=== PATIENT | female | born 1950 | race Caucasian/White ===

== ENCOUNTER 2022-10-24 07:52 | Emergency (ER) | payer MEDICARE, OTHER ==
[~2022-10-24] VITALS: Ht 157.5 cm; Wt 129.3 kg
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
[2022-10-24 08:28] LABS: BASOPHILS # (AUTO) 0.1 10^3/uL (0.0-0.1); BASOPHILS % (AUTO) 1 % (0-10); EOSINOPHILS # (AUTO) 0.4 10^3/uL (0.0-0.3); EOSINOPHILS % (AUTO) 3 % (0-10); HEMATOCRIT 38 % (35-52); HEMOGLOBIN 12.5 g/dL (11.5-16.0); LYMPHOCYTES # (AUTO) 1.7 10^3/uL (1.0-4.0); LYMPHOCYTES % (AUTO) 12 % (12-44); MEAN CORPUSCULAR HEMOGLOBIN 29 pg (25-34); MEAN CORPUSCULAR HGB CONC 33 g/dL (32-36); MEAN CORPUSCULAR VOLUME 87 fL (80-99); MEAN PLATELET VOLUME 10.1 fL (9.0-12.2); MONOCYTES # (AUTO) 0.9 10^3/uL (0.0-1.0); MONOCYTES % (AUTO) 6 % (0-12); NEUTROPHILS # (AUTO) 10.4 10^3/uL (1.8-7.8); NEUTROPHILS % (AUTO) 76 % (42-75); PLATELET COUNT 247 10^3/uL (130-400); WHITE BLOOD COUNT 13.7 10^3/uL (4.3-11.0)
[2022-10-24] MEDS ORDERED: ASPIRIN 81 MG CHEW (CHILDREN'S ASA) PO ONE (08:30)
[2022-10-24 08:40] LABS: ALBUMIN 3.7 GM/DL (3.2-4.5); POTASSIUM 4.3 MMOL/L (3.6-5.0)
[2022-10-24 08:41] LABS: CALCIUM 9.7 MG/DL (8.5-10.1)
[2022-10-24 08:42] LABS: PROTHROMBIN TIME PATIENT 13.2 SEC (12.2-14.7)
[2022-10-24 08:43] LABS: TOTAL PROTEIN 6.7 GM/DL (6.4-8.2)
[2022-10-24 08:44] LABS: BILIRUBIN,TOTAL 0.4 MG/DL (0.1-1.0)
[2022-10-24 08:46] LABS: CREATININE SERUM 1.01 MG/DL (0.60-1.30)
[2022-10-24 08:49] LABS: MAGNESIUM 1.6 MG/DL (1.6-2.4)
--- NOTE | 2022-10-24 08:53 | Diagnostic Imaging Report ---
EXAMINATION: Chest, 1 view. HISTORY: Chest pain. COMPARISON: None available. FINDINGS: Heart size is mildly enlarged. Mild interstitial opacities within the lower lungs. No pleural effusion or pneumothorax. The osseous structures are intact. IMPRESSION: Cardiomegaly with mild interstitial opacities in the lung bases which can be seen with atelectasis, pulmonary edema, or atypical infection. Dictated by: Dictated on workstation # [id number]
[2022-10-24] MEDS ORDERED: NS 100 ML (IVPB) BAG IV ONE (09:15)
[2022-10-24] MEDS ORDERED: IOHEXOL 350 MG/ML 100 ML (OMNIPAQUE 350) VIAL IV ONE (09:15)
[2022-10-24] MEDS ORDERED: HOLD METFORMIN - RECEIVED CONTRAST 20 ML VIAL IV SCH (09:15)
--- NOTE | 2022-10-24 09:35 | Diagnostic Imaging Report ---
INDICATION: Chest pain, dyspnea and elevated d-dimer levels. There is also swelling of left lower extremity. CTA of the thorax performed after bolus intravenous administration of iodinated contrast. 3-D reformatted images are produced. Automatic exposure controls were utilized to keep dose as low as reasonably achievable. FINDINGS: There is good opacification of pulmonary arteries without intraluminal filling defect identified. Thoracic aorta is of normal caliber. There is mild dependent atelectasis in both lungs. There is no evidence of consolidation. Mild pericardial fluid is seen without significant pleural fluid. There is no evidence of pathologically enlarged adenopathy. IMPRESSION: No CTA evidence of pulmonary embolism. There is mild pericardial fluid present without other evidence of acute abnormality in the chest. Dictated by: Dictated on workstation # [id number]
[2022-10-24 10:45] VITALS: BP 102/59
== END 2022-10-24 10:45 | disposition home or self-care (01) ==
LOC: ER 07:55
DX: I31.39 Other pericardial effusion (noninflammatory) (principal); R60.0 Localized edema; R79.1 Abnormal coagulation profile; Z20.822 Contact with and (suspected) exposure to COVID-19
CPT/HCPCS: 36415; 71045; 71275; 80053; 83690; 83735; 83880; 84484; 85025; 85379; 85610; 85730; 87636; 93005; 93041

== ENCOUNTER 2023-04-01 17:17 | Emergency (ER) | payer MEDICARE ==
[~2023-04-01] VITALS: Ht 157 cm; Wt 136.0 kg
[2023-04-01 17:36] LABS: BASOPHILS # (AUTO) 0.1 10^3/uL (0.0-0.1); BASOPHILS % (AUTO) 1 % (0-10); EOSINOPHILS # (AUTO) 0.3 10^3/uL (0.0-0.3); EOSINOPHILS % (AUTO) 3 % (0-10); HEMATOCRIT 37 % (35-52); HEMOGLOBIN 11.8 g/dL (11.5-16.0); LYMPHOCYTES # (AUTO) 1.8 10^3/uL (1.0-4.0); LYMPHOCYTES % (AUTO) 17 % (12-44); MEAN CORPUSCULAR HEMOGLOBIN 29 pg (25-34); MEAN CORPUSCULAR HGB CONC 32 g/dL (32-36); MEAN CORPUSCULAR VOLUME 90 fL (80-99); MEAN PLATELET VOLUME 10.2 fL (9.0-12.2); MONOCYTES # (AUTO) 0.9 10^3/uL (0.0-1.0); MONOCYTES % (AUTO) 8 % (0-12); NEUTROPHILS # (AUTO) 7.8 10^3/uL (1.8-7.8); NEUTROPHILS % (AUTO) 71 % (42-75); PLATELET COUNT 265 10^3/uL (130-400)
[2023-04-01] MEDS ORDERED: ASPIRIN 81 MG CHEW (CHILDREN'S ASA) PO ONE (17:45)
[2023-04-01 17:50] LABS: ALBUMIN 3.9 GM/DL (3.2-4.5); CHLORIDE 103 MMOL/L (98-107); POTASSIUM 4.2 MMOL/L (3.6-5.0); SODIUM 140 MMOL/L (135-145)
[2023-04-01 17:51] LABS: CALCIUM 9.7 MG/DL (8.5-10.1)
--- NOTE | 2023-04-01 17:51 | ED Chest Pain ---
General Chief Complaint: Chest Pain Stated Complaint: TIGHTNESS IN CHEST Nursing Triage Note: cp, sob, arms are heavy has been feeling this way since yesterday around 0930. 5\\10 on pain scale. Source: patient Exam Limitations: no limitations History of Present Illness Date Seen by Provider: Apr 01, 2023 Time Seen by Provider: 17:27 Initial Comments 73-year-old female presents to the ER with complaints of midsternal chest tightness starting yesterday morning around 9:30 AM. She states that she was having intermittent pain prior to this, but states that it has been constant since yesterday morning. She states the pain has gotten worse today. She reports that the pain is worse with exertion. She describes the pain as a tightness, denies stabbing pain or pressure pain. States it does not radiate. Denies any sweating with the pain. Denies any nausea or vomiting. She does report shortness of breath, states her shortness of breath is also worse with exertion. She was seen by Dr. Grayson, her primary, approximately 3 weeks ago. She was prescribed Bumex at that time due to some lower extremity edema. She states that the swelling has improved, but it is still present. Past medical history includes hypertension, diabetes, GERD, PVCs, hyperlipidemia, and restless leg. She denies fevers, cough, abdominal pain, nausea, vomiting. Allergies and Home Medications Allergies Coded Allergies: No Known Drug Allergies (Unverified , 04/01/23) Patient Home Medication List Home Medication List Reviewed: Yes Review of Systems Review of Systems Constitutional: see HPI Past Efmvowp-Wbvioa-Fdwdjw Hx Patient Social History Tobacco Use?: No Use of E-Cig and/or Vaping dev: No Substance use?: No Alcohol Use?: No Pt feels they are or have been: No Immunizations Up To Date First/Initial COVID19 Vaccinat: 2 shots Past Medical History Surgery/Hospitalization HX: htn, asthma, restless leg, pvc's, NIDDM Gurd appy, gb, bilateral knee replacement, total hyster Surgeries: Yes Gallbladder, Hysterectomy, Joint Replacement, Tonsillectomy Physical Exam Vital Signs Vital Signs - First Documented 04/01/23 17:22 Temp 36.3 Pulse 71 Resp 20 B/P (MAP) 145/81 (102) Pulse Ox 95 O2 Delivery Room Air Capillary Refill : Height, Weight, BMI Height: '" Weight: lbs. oz. kg; 55.00 BMI Method: General Appearance: No Apparent Distress, WD/WN Neck: Normal Inspection, Supple Respiratory: Lungs Clear, Normal Breath Sounds, No Accessory Muscle Use, No Respiratory Distress, Other (Midsternal chest tender to palpation) Cardiovascular: Regular Rate, Rhythm Extremity: Normal Range of Motion, Pedal Edema (+1 lower extremity edema) Neurologic/Psychiatric: Alert, Normal Mood/Affect Skin: Normal Color, Warm/Dry Progress/Results/Core Measures Results/Orders Lab Results Laboratory Tests Test 04/01/23 17:29 04/01/23 18:02 Range/Units White Blood Count 11.0 4.3-11.0 10^3/uL Red Blood Count 4.10 3.80-5.11 10^6/uL Hemoglobin 11.8 11.5-16.0 g/dL Hematocrit 37 35-52 % Mean Corpuscular Volume 90 80-99 fL Mean Corpuscular Hemoglobin 29 25-34 pg Mean Corpuscular Hemoglobin Concent 32 32-36 g/dL Red Cell Distribution Width 15.5 H 10.0-14.5 % Platelet Count 265 130-400 10^3/uL Mean Platelet Volume 10.2 9.0-12.2 fL Immature Granulocyte % (Auto) 1 % Neutrophils (%) (Auto) 71 42-75 % Lymphocytes (%) (Auto) 17 12-44 % Monocytes (%) (Auto) 8 0-12 % Eosinophils (%) (Auto) 3 0-10 % Basophils (%) (Auto) 1 0-10 % Neutrophils # (Auto) 7.8 1.8-7.8 10^3/uL Lymphocytes # (Auto) 1.8 1.0-4.0 10^3/uL Monocytes # (Auto) 0.9 0.0-1.0 10^3/uL Eosinophils # (Auto) 0.3 0.0-0.3 10^3/uL Basophils # (Auto) 0.1 0.0-0.1 10^3/uL Immature Granulocyte # (Auto) 0.1 0.0-0.1 10^3/uL Prothrombin Time 12.6 12.2-14.7 SEC INR Comment 0.9 0.8-1.4 Activated Partial Thromboplast Time 31 24-35 SEC Sodium Level 140 135-145 MMOL/L Potassium Level 4.2 3.6-5.0 MMOL/L Chloride Level 103 98-107 MMOL/L Carbon Dioxide Level 25 21-32 MMOL/L Anion Gap 12 5-14 MMOL/L Blood Urea Nitrogen 27 H 7-18 MG/DL Creatinine 0.95 0.60-1.30 MG/DL Estimat Glomerular Filtration Rate 64 BUN/Creatinine Ratio 28 Glucose Level 139 H 70-105 MG/DL Calcium Level 9.7 8.5-10.1 MG/DL Corrected Calcium 9.8 8.5-10.1 MG/DL Magnesium Level 1.5 L 1.6-2.4 MG/DL Total Bilirubin 0.3 0.1-1.0 MG/DL Aspartate Amino Transf (AST/SGOT) 13 5-34 U/L Alanine Aminotransferase (ALT/SGPT) 19 0-55 U/L Alkaline Phosphatase 88 40-136 U/L Troponin I < 0.028 <0.028 NG/ML Total Protein 6.7 6.4-8.2 GM/DL Albumin 3.9 3.2-4.5 GM/DL B-Type Natriuretic Peptide 27.1 <100.0 PG/ML My Orders Orders - KAYLIE PARSON HEAD REFRIGERATING ENGINEER Cbc With Automated Diff (04/01/23 17:27) Magnesium (04/01/23 17:27) Chest 1 View, Ap/Pa Only (04/01/23 17:27) Comprehensive Metabolic Panel (04/01/23 17:27) Protime With Inr (04/01/23 17:27) Partial Thromboplastin Time (04/01/23 17:27) Monitor-Rhythm Ecg Trace Only (04/01/23 17:27) Ed Iv/Invasive Line Start (04/01/23 17:27) Troponin I Sharon (04/01/23 17:27) Bnp [place] (04/01/23 17:42) Aspirin Chewable Tablet (Baby Aspirin Ch (04/01/23 17:45) Magnesium 1 Gm/100 Ml Ivpb (Magnesium Dillon (04/01/23 19:00) Medications Given in ED Current Medications Medications Dose Ordered Sig/Mariaelena Route Start Time Stop Time Status Last Admin Dose Admin Aspirin 324 mg ONCE ONCE PO 04/01/23 17:45 6/25/23 17:46 DC 04/01/23 17:53 324 MG Magnesium Sulfate/ Dextrose 100 ml @ 200 mls/hr ONCE ONCE IV 04/01/23 19:00 04/01/23 19:29 DC 04/01/23 19:04 200 MLS/HR Vital Signs/I&O 04/01/23 17:22 Temp 36.3 Pulse 71 Resp 20 B/P (MAP) 145/81 (102) Pulse Ox 95 O2 Delivery Room Air Blood Pressure Mean: 102 Progress Progress Note : Progress Note Patient seen and evaluated, resting comfortably in bed, no acute distress. Based on exam and symptoms, work-up initiated occluding CBC, CMP, troponin, magnesium, coags, BNP, chest x-ray. 1858 labs and x-ray reviewed. CBC grossly normal. CMP shows elevated BUN 27, normal creatinine, GFR 64, these are similar to previous. Magnesium is low at 1.5. Replacement magnesium ordered. Troponin negative. BNP normal. Coags normal. Chest x-ray shows cardiomegaly and mild central pulmonary venous congestion. Results discussed with patient. Patient instructed to follow-up with cardiology regarding enlarged heart and vascular congestion. Symptoms are likely related to heart failure. Patient states that her sees Dr. Shoemaker, and she will follow-up with Dr. Shoemaker. Will discharge after magnesium replacement. Discharge instructions and return precautions provided. Initial ECG Impression Date: Apr 01, 2023 Initial ECG Impression Time: 17:21 Initial ECG Rate: 73 Initial ECG Rhythm: Normal Sinus Initial ECG Intervals: KS (Prolonged at 230) Initial ECG Impression: Nonspecific Changes Initial ECG Comparisson: Unchanged Diagnostic Imaging Diagonstic Imaging: Xray Plain Films/CT/US/NM/MRI: chest Comments [facility] [place] [place] NAME: DEE RAM [facility] REC#: [id number] PT STATUS: REG ER : 1950 PHYSICIAN: KAYLIE PARSON APRN ADMIT DATE: 04/01/23/ER Signed Date of Exam:04/01/23 CHEST 1 VIEW, AP/PA ONLY INDICATION: Chest pain. COMPARISON: Prior examination from 10/24/2022. There is generalized cardiomegaly and mild central pulmonary venous congestion. The mediastinal configuration is unremarkable. There is no pleural effusion, pneumothorax or pneumonia. The visualized osseous structures are unremarkable. IMPRESSION: Cardiomegaly and mild central pulmonary venous congestion. Dictated by: Dictated on workstation # [id number] Dict: 04/01/23 1750 Trans: 04/01/23 1800 PJE [id number] Interpreted by: ESTRADA SPAIN MD Electronically signed by: ESTRADA SPAIN MD 04/01/23 1800 Departure Impression Primary Impression: Chest tightness Additional Impressions: Shortness of breath Cardiomegaly Hypomagnesemia Disposition: HOME, SELF-CARE Condition: Stable Departure-Patient Inst. Decision time for Depature: 19:37 Referrals: [facility] [facility] [place] Primary Care Physician Patient Instructions: Chest Pain, Adult ED Add. Discharge Instructions: Follow-up with cardiology, call them tomorrow to schedule a follow-up appointment. Follow-up with your primary care provider. Continue taking your medications as prescribed, especially your bumetanide. Return for severe chest pain, severe shortness of breath, or any other new, concerning, or worsening symptoms. All discharge instructions reviewed with patient and/or family. Voiced understa nding. KAYLIE PARSON HEAD REFRIGERATING ENGINEER Apr 01, 2023 17:51
[2023-04-01 17:52] LABS: GLUCOSE 139 MG/DL (70-105); INR 0.9 (0.8-1.4); PROTHROMBIN TIME PATIENT 12.6 SEC (12.2-14.7)
[2023-04-01 17:53] LABS: TOTAL PROTEIN 6.7 GM/DL (6.4-8.2)
[2023-04-01 17:54] LABS: BILIRUBIN,TOTAL 0.3 MG/DL (0.1-1.0); CARBON DIOXIDE 25 MMOL/L (21-32)
[2023-04-01 17:56] LABS: ALKALINE PHOSPHATASE 88 U/L (40-136); CREATININE SERUM 0.95 MG/DL (0.60-1.30); GFR ESTIMATED 64
[2023-04-01 17:57] LABS: BUN/CREATININE RATIO 28
[2023-04-01 17:59] LABS: ALANINE AMINOTRANSFERASE 19 U/L (0-55); MAGNESIUM 1.5 MG/DL (1.6-2.4)
[2023-04-01] MEDS ORDERED: MAGNESIUM 1 GM/100 ML IVPB 100 ML IV ONE ×2 (19:00)
[2023-04-01 19:50] VITALS: BP 146/64
== END 2023-04-01 19:40 | disposition home or self-care (01) ==
LOC: EDUNIT# 17:17 → ER 17:19
DX: I11.9 Hypertensive heart disease without heart failure (principal); E83.42 Hypomagnesemia; R79.89 Other specified abnormal findings of blood chemistry; Z28.311 Partially vaccinated for COVID-19
CPT/HCPCS: 36415; 71045; 80053; 83735; 83880; 84484; 85025; 85610; 85730; 93005; 93041

== ENCOUNTER 2023-08-21 11:19 | Emergency (ER) | payer MEDICARE ==
[~2023-08-21] VITALS: Ht 154.9 cm; Wt 136.0 kg
[2023-08-21 11:38] LABS: BASOPHILS % (AUTO) 0 % (0-10); EOSINOPHILS # (AUTO) 0.1 10^3/uL (0.0-0.3); EOSINOPHILS % (AUTO) 0 % (0-10); HEMATOCRIT 37 % (35-52); HEMOGLOBIN 11.8 g/dL (11.5-16.0); LYMPHOCYTES # (AUTO) 0.7 10^3/uL (1.0-4.0); LYMPHOCYTES % (AUTO) 6 % (12-44); MEAN CORPUSCULAR HEMOGLOBIN 28 pg (25-34); MEAN CORPUSCULAR HGB CONC 32 g/dL (32-36); MEAN CORPUSCULAR VOLUME 89 fL (80-99); MEAN PLATELET VOLUME 11.2 fL (9.0-12.2); MONOCYTES # (AUTO) 0.3 10^3/uL (0.0-1.0); MONOCYTES % (AUTO) 3 % (0-12); NEUTROPHILS # (AUTO) 10.1 10^3/uL (1.8-7.8); NEUTROPHILS % (AUTO) 90 % (42-75); PLATELET COUNT 242 10^3/uL (130-400); WHITE BLOOD COUNT 11.3 10^3/uL (4.3-11.0)
--- NOTE | 2023-08-21 11:41 | ED Chest Pain ---
General Chief Complaint: Cardiac/General Problems Stated Complaint: HEART PALPETATIONS/TIGHTNESS IN CHEST/SOB Nursing Triage Note: PT AMB TO [facility] 5 WITH CC OF CHEST TIGHTNESS AND PALPITATIONS X2 DAYS. PT STATES THAT SHE HAS AN INCREASE IN PAIN WITH MOVEMENT. Source: patient Exam Limitations: no limitations History of Present Illness Date Seen by Provider: Aug 21, 2023 Time Seen by Provider: 11:29 Allergies and Home Medications Allergies Coded Allergies: No Known Drug Allergies (Unverified , 04/01/23) Past Jklpmas-Zxgcdl-Zypymm Hx Patient Social History Tobacco Use?: No Substance use?: No Alcohol Use?: No Immunizations Up To Date First/Initial COVID19 Vaccinat: 2 shots Second COVID19 Vaccination Leno: 2 shots Third COVID19 Vaccination Date: 2 shots Past Medical History Surgery/Hospitalization HX: htn, asthma, restless leg, pvc's, NIDDM Gurd appy, gb, bilateral knee replacement, total hyster Surgeries: Yes Gallbladder, Hysterectomy, Joint Replacement, Tonsillectomy Physical Exam Vital Signs Vital Signs - First Documented 08/21/23 11:26 Pulse 49 B/P (MAP) 182/73 (109) Pulse Ox 95 O2 Delivery Room Air Capillary Refill : Height, Weight, BMI Height: '" Weight: lbs. oz. kg; 56.00 BMI Method: Progress/Results/Core Measures Results/Orders Lab Results Laboratory Tests Test 08/21/23 11:32 08/21/23 11:42 08/21/23 13:00 Range/Units White Blood Count 11.3 H 4.3-11.0 10^3/uL Red Blood Count 4.21 3.80-5.11 10^6/uL Hemoglobin 11.8 11.5-16.0 g/dL Hematocrit 37 35-52 % Mean Corpuscular Volume 89 80-99 fL Mean Corpuscular Hemoglobin 28 25-34 pg Mean Corpuscular Hemoglobin Concent 32 32-36 g/dL Red Cell Distribution Width 14.3 10.0-14.5 % Platelet Count 242 130-400 10^3/uL Mean Platelet Volume 11.2 9.0-12.2 fL Immature Granulocyte % (Auto) 1 % Neutrophils (%) (Auto) 90 H 42-75 % Lymphocytes (%) (Auto) 6 L 12-44 % Monocytes (%) (Auto) 3 0-12 % Eosinophils (%) (Auto) 0 0-10 % Basophils (%) (Auto) 0 0-10 % Neutrophils # (Auto) 10.1 H 1.8-7.8 10^3/uL Lymphocytes # (Auto) 0.7 L 1.0-4.0 10^3/uL Monocytes # (Auto) 0.3 0.0-1.0 10^3/uL Eosinophils # (Auto) 0.1 0.0-0.3 10^3/uL Basophils # (Auto) 0.0 0.0-0.1 10^3/uL Immature Granulocyte # (Auto) 0.1 0.0-0.1 10^3/uL Neutrophils % (Manual) 87 % Lymphocytes % (Manual) 6 % Monocytes % (Manual) 3 % Basophils % (Manual) 1 % Band Neutrophils 3 % Blood Morphology Comment NORMAL Prothrombin Time 14.0 12.2-14.7 SEC INR Comment 1.0 0.8-1.4 Activated Partial Thromboplast Time 35 24-35 SEC D-Dimer 0.81 H 0.00-0.49 UG/ML Sodium Level 132 L 135-145 MMOL/L Potassium Level 4.7 3.6-5.0 MMOL/L Chloride Level 98 98-107 MMOL/L Carbon Dioxide Level 25 21-32 MMOL/L Anion Gap 9 5-14 MMOL/L Blood Urea Nitrogen 15 7-18 MG/DL Creatinine 0.96 0.60-1.30 MG/DL Estimat Glomerular Filtration Rate 63 BUN/Creatinine Ratio 16 Glucose Level 234 H 70-105 MG/DL Calcium Level 9.9 8.5-10.1 MG/DL Corrected Calcium 9.8 8.5-10.1 MG/DL Magnesium Level 1.6 1.6-2.4 MG/DL Total Bilirubin 0.6 0.1-1.0 MG/DL Aspartate Amino Transf (AST/SGOT) 9 5-34 U/L Alanine Aminotransferase (ALT/SGPT) 13 0-55 U/L Alkaline Phosphatase 100 40-136 U/L Myoglobin 23.1 10.0-92.0 NG/ML Troponin I < 0.028 < 0.028 <0.028 NG/ML C-Reactive Protein High Sensitivity 2.71 H 0.00-0.50 MG/DL B-Type Natriuretic Peptide 223.6 H <100.0 PG/ML Total Protein 7.0 6.4-8.2 GM/DL Albumin 4.1 3.2-4.5 GM/DL Influenza Type A (RT-PCR) Not Detected Not Detecte Influenza Type B (RT-PCR) Not Detected Not Detecte SARS-CoV-2 RNA (RT-PCR) Not Detected Not Detecte My Orders Orders - JASPREET ASKEW MD Ekg Tracing (08/21/23 11:21) Cbc And Automated Diff (08/21/23 11:29) Magnesium (08/21/23 11:29) Chest 1 View, Ap/Pa Only (08/21/23 11:29) Comprehensive Metabolic Panel (08/21/23 11:29) Myoglobin Serum (08/21/23 11:29) Protime With Inr (08/21/23 11:29) Partial Thromboplastin Time (08/21/23 11:29) O2 (08/21/23 11:29) Monitor-Rhythm Ecg Trace Only (08/21/23 11:29) Lipid Panel (08/22/23 06:00) Ed Iv/Invasive Line Start (08/21/23 11:29) Troponin I [place] (08/21/23 11:29) Covid 19 Inhouse Test (08/21/23 11:38) Influenza A And B By Pcr (08/21/23 11:38) Manual Differential (08/21/23 11:32) Bnp [place] (08/21/23 11:52) Hs C Reactive Protein (08/21/23 11:52) Troponin I [place] (08/21/23 13:35) Fibrin Degradation Products (08/21/23 12:33) Ct Angio Chest W (R/O Pe) (08/21/23 14:06) Iohexol Injection (Omnipaque 350 Mg/Ml 1 (08/21/23 14:30) Received Contrast (Hold Metformin- Contr (08/21/23 14:30) Ns (Ivpb) 100 Ml (Sodium Chloride 0.9% 1 (08/21/23 14:30) Medications Given in ED Current Medications Medications Dose Ordered Sig/Mariaelena Route Start Time Stop Time Status Last Admin Dose Admin Iohexol 100 ml ONCE ONCE IV 08/21/23 14:30 08/21/23 14:31 DC 08/21/23 14:38 88 ML Sodium Chloride 100 ml ONCE ONCE IV 08/21/23 14:30 08/21/23 14:31 DC 08/21/23 14:38 80 ML Vital Signs/I&O 08/21/23 11:26 Pulse 49 B/P (MAP) 182/73 (109) Pulse Ox 95 O2 Delivery Room Air Blood Pressure Mean: 109 Initial ECG Impression Date: Aug 21, 2023 Initial ECG Impression Time: 11:28 Initial ECG Rate: 70 Comment Sinus rhythm with no ischemic ST elevation or depression. Multiple PVCs including a run of bigeminy. First-degree A-V block with WI interval of 263. No axis deviation. Departure Impression Primary Impression: Chest tightness Additional Impressions: Fluid overload Qualified Codes: E87.70 - Fluid overload, unspecified Frequent PVCs Disposition: 01 HOME, SELF-CARE Condition: Improved Departure-Patient Inst. Decision time for Depature: 15:35 Referrals: [facility] [place] (PCP/Family) Primary Care Physician Patient Instructions: Chest Pain, Adult ED Add. Discharge Instructions: Resume taking your bumetanide diuretic. If you have too much trouble with fluctuating surges of urination, you may try splitting up the dose so that you take 1/2 mg in the morning and 1/2 mg about 6 hours later. Follow-up with Dr. HDEZ as soon as possible. Please call today to make an appointment. Daily weights may be helpful in monitoring your fluid status. Consider weighing your self each morning to monitor fluctuations in fluid status. Avoid excessive salt consumption as this may worsen swelling. Return to care if you have worsening symptoms despite following these i nstructions. All discharge instructions reviewed with patient and/or family. Voiced understanding. Copy Copies To 1: BRADLEY HDEZ JOSHUA T MD Aug 21, 2023 11:41
[2023-08-21 11:53] LABS: ALBUMIN 4.1 GM/DL (3.2-4.5)
[2023-08-21 11:54] LABS: CHLORIDE 98 MMOL/L (98-107); POTASSIUM 4.7 MMOL/L (3.6-5.0); SODIUM 132 MMOL/L (135-145)
[2023-08-21 11:55] LABS: CALCIUM 9.9 MG/DL (8.5-10.1)
[2023-08-21 11:56] LABS: GLUCOSE 234 MG/DL (70-105)
[2023-08-21 11:57] LABS: CARBON DIOXIDE 25 MMOL/L (21-32)
[2023-08-21 11:58] LABS: BILIRUBIN,TOTAL 0.6 MG/DL (0.1-1.0)
[2023-08-21 11:59] LABS: ALKALINE PHOSPHATASE 100 U/L (40-136)
[2023-08-21 12:00] LABS: CREATININE SERUM 0.96 MG/DL (0.60-1.30); GFR ESTIMATED 63
[2023-08-21 12:01] LABS: BUN/CREATININE RATIO 16
[2023-08-21 12:02] LABS: ALANINE AMINOTRANSFERASE 13 U/L (0-55); MAGNESIUM 1.6 MG/DL (1.6-2.4)
[2023-08-21 12:03] LABS: BAND NEUTROPHILS 3 %; BASOPHILS % (MANUAL) 1 %; LYMPHOCYTES % (MANUAL) 6 %; MONOCYTES % (MANUAL) 3 %; NEUTROPHILS % (MANUAL) 87 %; RBC MORPH NORMAL
--- NOTE | 2023-08-21 12:25 | Diagnostic Imaging Report ---
EXAMINATION: Portable erect AP chest at 11:43 a.m. INDICATION: Chest pain. FINDINGS: The cardiomegaly noted on the prior exam of 04/01/2023 is again evident and not significantly changed. The central pulmonary vascularity is somewhat prominent but also stable when compared to the previous exam. The lungs are generally clear, although the left retrocardiac region was not well visualized. The mediastinum is not widened. The osseous structures are intact. IMPRESSION: Stable chest. There has been no significant change since the prior exam. Dictated by: Dictated on workstation # [id number]
[2023-08-21] MEDS ORDERED: IOHEXOL 350 MG/ML 100 ML (OMNIPAQUE 350) VIAL IV ONE (14:30)
[2023-08-21] MEDS ORDERED: NS 100 ML (IVPB) BAG IV ONE (14:30)
[2023-08-21] MEDS ORDERED: HOLD METFORMIN - RECEIVED CONTRAST 20 ML VIAL IV SCH (14:30)
--- NOTE | 2023-08-21 15:08 | Diagnostic Imaging Report ---
TECHNIQUE: CTA of the chest is performed with contrast bolus timing optimized for evaluation of the pulmonary arteries. 3D reformats are obtained and reviewed. Dose-reduction techniques are utilized. REASON FOR EXAM: Chest pain. Palpitations. Elevated D-dimer. COMPARISON: 10/24/2022. FINDINGS: This helical CT pulmonary angiogram is diagnostic to the subsegmental level branches of the pulmonary artery and demonstrates no pulmonary emboli. The heart is enlarged. There is stable small pericardial effusion. There is no axillary, mediastinal, or hilar adenopathy. Atelectasis is seen in the lung bases. Scattered hazy opacities are seen in the lungs. No focal mass or consolidations. No pleural effusion or pneumothorax. Osseous structures appear normal. Limited views of the upper abdomen are unremarkable. IMPRESSION: 1. No acute pulmonary embolus. 2. Cardiomegaly with scattered hazy opacities, suggestive of edema. Dictated by: Dictated on workstation # [id number]
[2023-08-21 15:49] VITALS: BP 148/92
== END 2023-08-21 15:50 | disposition home or self-care (01) ==
LOC: EDUNIT# 11:19 → ER 11:21
DX: R07.89 Other chest pain (principal); E87.70 Fluid overload, unspecified; I49.3 Ventricular premature depolarization; I44.0 Atrioventricular block, first degree
CPT/HCPCS: 36415; 71045; 71275; 80053; 83735; 83874; 83880; 84484; 85007; 85027; 85379; 85610; 85730; 86141; 87636; 93005; 93041